=== PATIENT | female | born 1950 | race Caucasian/White ===

== ENCOUNTER 2017-08-12 09:40 | Day surgery (SDC) | payer OTHER, BC ==
[2017-08-12] MEDS ORDERED: [UNRECOGNIZED DRUG - OTHER] IV ONE (09:45)
[2017-08-12] MEDS ORDERED: HEPARIN 500 UNIT/5 ML SYR IV ONE (12:03)
== END 2017-08-12 12:30 | disposition home or self-care (01) ==
LOC: DS 09:40
PROVIDERS: ATTEND Family Medicine
DX: D80.1 Nonfamilial hypogammaglobulinemia (principal); D80.3 Selective deficiency of immunoglobulin G [IgG] subclasses
CPT/HCPCS: 96365; 96366; J1568; J1642